=== PATIENT | male | born 1980 | race Caucasian/White ===

== ENCOUNTER 2023-03-11 23:45 | Emergency (ER) | payer BC ==
[~2023-03-11] VITALS: Ht 175.3 cm; Wt 81.6 kg
--- NOTE | 2023-03-12 01:20 | NUR ---
RIGHT FOREARM #20 PERIPHERAL LINE STARTED, BLOOD SPECIMEN SENT TO LAB
[2023-03-12] MEDS ORDERED: CT SWABBABLE VALVE TRANS SET 1 EA INFUS.SET MC ONE (01:24)
[2023-03-12] MEDS ORDERED: IV NS 0.9% 250 ML IV ONE (01:24)
[2023-03-12] MEDS ORDERED: IOHEXOL-350 100 ML VIAL IV ONE (01:24)
--- NOTE | 2023-03-12 01:30 | NUR ---
PATIENT TAKEN TO CT
[2023-03-12 01:37] LABS: BASOPHILS # (AUTO) 0.1 K/uL (0.0-0.2); BASOPHILS % (AUTO) 0.9 % (0.0-2.0); EOSINOPHILS % (AUTO) 0.9 % (0.0-6.0); HEMATOCRIT 43 % (39-51); HEMOGLOBIN 14.3 g/dL (13.5-17.5); LYMPHOCYTES # (AUTO) 2.2 K/uL (0.8-4.8); LYMPHOCYTES % (AUTO) 31.2 % (20.0-44.0); MEAN CORPUSCULAR HGB CONC 33 g/dl (31.0-36.0); MEAN CORPUSCULAR VOLUME 86 fL (80-96); MONOCYTES # (AUTO) 0.7 K/uL (0.1-1.30); MONOCYTES % (AUTO) 9.4 % (2.0-12.0); NEUTROPHILS # (AUTO) 4.1 K/uL (1.8-8.9); NEUTROPHILS % (AUTO) 57.6 % (43.0-81.0); PLATELET COUNT (AUTO) 119 K/uL (150-450); WHITE BLOOD COUNT (AUTO) 7.1 K/uL (4.3-11.0)
--- NOTE | 2023-03-12 01:39 | NUR ---
BACK FROM CT
[2023-03-12 01:52] LABS: CALCIUM, SERUM 9.3 mg/dL (8.5-10.1); CARBON DIOXIDE 31 mmol/L (21-32); CHLORIDE 101 mmol/L (98-107); CREATININE 0.7 mg/dL (0.6-1.3); GLUCOSE 108 mg/dL (74-106); POTASSIUM 3.5 mmol/L (3.5-5.1); SODIUM SERUM 139 mmol/L (136-145); UREA NITROGEN, BLOOD 10 mg/dL (7-18)
--- NOTE | 2023-03-12 04:04 | NUR ---
Patient discharged to home in stable condition. Ambulatory with . Written and verbal after care instructions given. Patient verbalizes understanding of instruction.
[2023-03-12 04:05] VITALS: BP 145/93
== END 2023-03-12 04:06 | disposition home or self-care (01) ==
LOC: ER 23:48
DX: R07.89 Other chest pain (principal); I10 Essential (primary) hypertension
CPT/HCPCS: 99285; 71275; 93005; 85025; 80048; 36415; 84484; J7050; Q9967